=== PATIENT | female | born 1950 | race Caucasian/White ===

== ENCOUNTER → 2019-11-29 | Outpatient (CLI) | payer BC ==
--- NOTE | 2019-11-29 10:43 | Diagnostic Imaging Report ---
Exam: KUB - 2 views Indication: Hematuria Comparison: None Findings: Multiple punctate 2 mm calcific densities overlie the upper pole of the left renal silhouette. No calcific densities overlie the right kidney. Nonobstructive bowel gas pattern. No free air. No acute osseous injury. Impression: Punctate 2 mm calcific densities overlying the left renal upper pole may represent small renal calculi. Signed by: Alba Kee MD on 11/29/2019 10:39 AM
--- NOTE | 2019-11-29 11:25 | Diagnostic Imaging Report ---
EXAM: Renal Ultrasound INDICATION: ^[id number] ^[id number] ^ASYMPTOMATIC MICROSCOPIC HEMATURIA COMPARISON: KUB of the same day TECHNIQUE: Transverse and longitudinal images of the kidneys and bladder were obtained. FINDINGS: Right Kidney: Length: 8.9 cm Appearance: Normal echogenicity. Collecting system: No hydronephrosis Stones: None Cyst/Mass: None Left Kidney: Length: 10.5 cm Appearance: Normal echogenicity. Collecting system: No hydronephrosis Stones: None Cyst/Mass: None Bladder: No mass or calculi. Bilateral ureteral jets visualized. Prevoid volume estimate of 140 cc. IMPRESSION: No renal calculi or hydronephrosis. Signed by: Alba Kee MD on 11/29/2019 11:21 AM
== END ==
LOC: US 09:35
PROVIDERS: ATTEND Urology
DX: R31.21 Asymptomatic microscopic hematuria (principal)
CPT/HCPCS: 74018; 76770

== ENCOUNTER → 2020-11-08 | Outpatient (CLI) | payer BC | LOC: RAD 12:14 | PROVIDERS: ATTEND Urology | DX: N20.0 Calculus of kidney (principal) | CPT/HCPCS: 74018 ==

== ENCOUNTER → 2021-04-24 | Outpatient (CLI) | payer BC | LOC: RAD 11:39 | PROVIDERS: ATTEND Urology | DX: N20.0 Calculus of kidney (principal) | CPT/HCPCS: 74018 ==